=== PATIENT | male | born 1995 | race Asian ===

== ENCOUNTER 2024-12-29 11:19 | Emergency (ER) | payer OTHER ==
[~2024-12-29] VITALS: Ht 175.3 cm; Wt 87.0 kg
[2024-12-29 11:24] VITALS: BP 124/73; TEMP 36.7; O2SAT 98
[2024-12-29 11:25] VITALS: PULSE 116; RESP 20; O2SAT 98
== END 2024-12-29 13:20 | disposition left against medical advice (07) ==
LOC: ER 12:48
DX: M54.9 Dorsalgia, unspecified (principal); M54.2 Cervicalgia; Z53.21 Procedure and treatment not carried out due to patient leaving prior to being seen by health care provider